=== PATIENT | male | born 1970 | race Caucasian/White ===

== ENCOUNTER 2020-08-31 16:28 | Inpatient (IN) | payer OTHER ==
[~2020-08-31] VITALS: Ht 180.3 cm; Wt 77.2 kg
[~2020-08-31 16:28] MED LIST: ACHD5005 PO; DOCU-143 PO; LEVO125T6 PO; SERT100T PO
[2020-08-31] MEDS ORDERED: fentaNYL INJECTION 100 MCG/2 ML AMP IVP PRN (18:45)
[2020-08-31] MEDS ORDERED: PROMETHAZINE INJ 25 MG/ML (PHENERGAN) AMP IVP PRN (18:45)
--- NOTE | 2020-08-31 18:48 | NUR ---
RADHA ALMARAZ admitted to room 418-1, with an admitting diagnosis of abd pain, on 08/31/20 from [facility] via EMS, accompanied by staff and police cadet to sit with patient (long term inmate) .RADHA ALMARAZ introduced to surroundings, call light, bed controls, phone, TV, temperature control, lights, meal times, smoking policy, visitor policy, side rail policy, bathrooms and showers. Patient Rights given to patient in the handbook. RADHA ALMARAZ verbalizes understanding that [facility] is not responsible for the loss or damage to any personal effects or valuables that are kept in the patients posession during their hospitalization. The following Patient Care Plans and discharge were discussed with the patient . RADHA ALMARAZ verbalizes understanding of Interdisciplinary Patient Education. Patient was informed about the Rapid Response Team and its purpose.
--- NOTE | 2020-08-31 20:03 | HISTORY AND PHYSICAL ---
DATE OF SERVICE: HISTORY OF PRESENT ILLNESS: The patient is a 50-year-old male who was transferred after being evaluated in [facility] in [place], [place]. This individual is incarcerated and states that he developed pain in the epigastric region as well as right upper abdominal quadrant. He also reports a few episodes of nausea and vomiting as well. He does not report any diarrhea nor constipation as well as no red blood per rectum nor any dark tarry stools. He underwent a CT scan, which did show gallbladder wall thickening as well as pericholecystic fluid consistent with an acute cholecystitis. PAST MEDICAL HISTORY: Anxiety, depression, hypothyroid. PAST SURGICAL HISTORY: Excision of abdominal wall lesion, which was benign. ALLERGIES: No known drug allergies. MEDICATIONS: Synthroid daily. SOCIAL HISTORY: Previous smoker; however, quit. Negative alcohol. FAMILY HISTORY: Noncontributory. VITAL SIGNS: Blood pressure 107/60, patient is afebrile. REVIEW OF SYSTEMS: A well-nourished male currently in no acute distress. He is not experiencing any shortness of breath or difficulty breathing. No chest pain, palpitations, diaphoresis. Intermittent episodes of nausea and vomiting. No hematemesis, no coffee-ground emesis, no diarrhea, constipation, no red blood per rectum, no dark tarry stools. No fever, chills, no recent inadvertent weight loss. All other review of systems negative. PHYSICAL EXAMINATION: CHEST: A few expiratory wheezes bilaterally. HEART: Regular, no murmurs. EXTREMITIES: No lower extremity edema, negative Homans sign. HEENT: No scleral icterus. NECK: No cervical lymphadenopathy. ABDOMEN: Soft, slightly distended with pain in the right upper abdominal quadrant and a positive Fabian sign. No hernias palpable. SKIN: Warm, dry. LABORATORY DATA: WBC 7.9, hemoglobin 16.1, hematocrit 46, platelets 176. BUN 29, creatinine 1.55. Total bilirubin 1.7. ASSESSMENT AND PLAN: A 50-year-old male with an acute cholecystitis. We will admit him, start him on IV fluids as well as bowel rest with clear liquid diet. We will continue to follow labs as well as total bilirubin and proceed with broad spectrum IV antibiotics. The natural history of gallbladder disease was also explained to the patient and he is in full understanding of this and would like to proceed with a laparoscopic cholecystectomy, which we will proceed with on this admission once some of the inflammation has subsided. Job ID: [id number] DocumentID: [id number] Dictated Date: 08/31/2020 19:09:31 Chainstitch Elastic Attacher Date: 08/31/2020 20:02:51 Dictated By: MELISSA LUNA MD
[2020-08-31 20:11] VITALS: BP 109/63
[2020-08-31] MEDS ORDERED: PANTOPRAZOLE 40 MG (PROTONIX) VIAL IV ONE (20:15)
[2020-08-31] MEDS: LEVOTHYROXINE 125 MCG (LEVOTHROID) TABLET PO SCH (20:47)
[2020-08-31] MEDS: NS IV 1000 ML 1,000 ML IV SCH (20:48)
[2020-08-31] MEDS ORDERED: PIPERACILLIN/TAZOBACTAM (BULK) 4.5 GM in NS (IVPB) 100 ML IV SCH ×2 (21:00→22:00)
[2020-08-31 22:04] VITALS: BP 106/71
[2020-08-31] MEDS ORDERED: PIPERACILLIN/TAZO 4.5 GM VIAL (ZOSYN) IV ONE (22:29)
[2020-08-31] MEDS ORDERED: NS (IVPB) 100 ML ONE (22:29)
[2020-09-01 00:47] VITALS: BP 97/64
[2020-09-01 04:00] VITALS: BP 97/68
[2020-09-01] MEDS: NS IV 1000 ML 1,000 ML IV SCH ×4 (05:00→21:44)
[2020-09-01] MEDS ORDERED: NS (IVPB) 100 ML ONE (05:03)
[2020-09-01] MEDS ORDERED: PIPERACILLIN/TAZO 4.5 GM VIAL (ZOSYN) IV ONE (05:03)
[2020-09-01] MEDS: PIPERACILLIN/TAZOBACTAM (BULK) 4.5 GM in NS (IVPB) 100 ML IV SCH ×3 (05:22→22:10)
[2020-09-01 06:01] LABS: BASOPHILS % (AUTO) 0 % (0-10); EOSINOPHILS # (AUTO) 0.2 10^3/uL (0.0-0.3); EOSINOPHILS % (AUTO) 3 % (0-10); HEMATOCRIT 38 % (40-54); HEMOGLOBIN 12.5 g/dL (13.3-17.7); LYMPHOCYTES # (AUTO) 0.3 10^3/uL (1.0-4.0); LYMPHOCYTES % (AUTO) 6 % (12-44); MEAN CORPUSCULAR HEMOGLOBIN 28 pg (25-34); MEAN CORPUSCULAR HGB CONC 33 g/dL (32-36); MEAN CORPUSCULAR VOLUME 86 fL (80-99); MONOCYTES # (AUTO) 0.2 10^3/uL (0.0-1.0); MONOCYTES % (AUTO) 3 % (0-12); NEUTROPHILS # (AUTO) 4.8 10^3/uL (1.8-7.8); NEUTROPHILS % (AUTO) 87 % (42-75); PLATELET COUNT 130 10^3/uL (130-400); WHITE BLOOD COUNT 5.5 10^3/uL (4.3-11.0)
[2020-09-01 06:04] LABS: POTASSIUM 3.6 MMOL/L (3.6-5.0)
[2020-09-01 06:05] LABS: CALCIUM 7.6 MG/DL (8.5-10.1)
[2020-09-01 06:07] LABS: TOTAL PROTEIN 5.5 GM/DL (6.4-8.2)
[2020-09-01 06:09] LABS: BILIRUBIN,TOTAL 1.1 MG/DL (0.1-1.0)
[2020-09-01 06:10] LABS: CREATININE SERUM 1.26 MG/DL (0.60-1.30)
[2020-09-01 08:00] VITALS: BP 99/67
[2020-09-01] MEDS: HYDROcodone/APAP 7.5 MG/325 MG (LORTAB, LORCET PLUS) TABLET PO PRN (08:44)
[2020-09-01] MEDS: PANTOPRAZOLE 40 MG (PROTONIX) VIAL IV SCH (08:44)
[2020-09-01] MEDS: ENOXAPARIN 40 MG/0.4 ML (LOVENOX) SYR SC SCH (09:56)
--- NOTE | 2020-09-01 10:02 | Progress Note-Pre Operative ---
Pre-Operative Progress Note H&P Reviewed The H&P was reviewed, patient examined and no changes noted. Date Seen by Provider: Sep 01, 2020 Time Seen by Provider: 10:00 Date H&P Reviewed: Sep 01, 2020 Time H&P Reviewed: 10:00 Pre-Operative Diagnosis: acute cholecystitis MELISSA LUNA MD Sep 01, 2020 10:02
--- NOTE | 2020-09-01 10:26 | Progress Note ---
Subjective Date Seen by a Provider: Sep 01, 2020 Time Seen by a Provider: 09:55 Subjective/Events-last exam Patient seen with Dr. Lugo. Patient reports still having some RUQ and epigastric pain. No fevers or chills. Reports having some clear liquids last night. Denies any fever or chills. Objective Exam Vital Signs Date Time Temp Pulse Resp B/P (MAP) Pulse Ox O2 Delivery O2 Flow Rate FiO2 09/01/20 08:00 37.0 106 18 99/67 (78) 93 Room Air 09/01/20 04:00 36.2 94 20 97/68 (78) 94 Room Air 09/01/20 00:47 36.8 100 20 97/64 (75) 94 Room Air 08/31/20 22:04 36.5 109 18 106/71 95 Room Air 08/31/20 20:30 94 Room Air 08/31/20 20:11 36.7 112 20 109/63 (78) 92 Room Air 08/31/20 19:06 Room Air I & O 09/01/20 07:00 Intake Total 1470 ml Output Total 475 ml Balance 995 ml Capillary Refill : Less Than 3 Seconds General Appearance: No Apparent Distress, WD/WN Neck: Full Range of Motion, Supple Respiratory: Normal Breath Sounds, No Accessory Muscle Use, No Respiratory Distress Cardiovascular: Regular Rate, Rhythm, No Edema Gastrointestinal: normal bowel sounds, soft, distended, tenderness (RUQ and Epigastric region) Extremity: Normal Inspection, Normal Range of Motion Neurologic/Psychiatric: Alert, Oriented x3 Skin: Normal Color, Warm/Dry Results Lab Laboratory Tests 09/01/20 05:28: White Blood Count 5.5, Red Blood Count 4.40, Hemoglobin 12.5L, Hematocrit 38L, Mean Corpuscular Volume 86, Mean Corpuscular Hemoglobin 28, Mean Corpuscular Hem oglobin Concent 33, Red Cell Distribution Width 13.2, Platelet Count 130, Mean Platelet Volume 11.0, Immature Granulocyte % (Auto) 1, Neutrophils (%) (Auto) 87H, Lymphocytes (%) (Auto) 6L, Monocytes (%) (Auto) 3, Eosinophils (%) (Auto) 3, Basophils (%) (Auto) 0, Neutrophils # (Auto) 4.8, Lymphocytes # (Auto) 0.3L, Monocytes # (Auto) 0.2, Eosinophils # (Auto) 0.2, Basophils # (Auto) 0.0, Immature Granulocyte # (Auto) 0.0, Sodium Level 138, Potassium Level 3.6, Chloride Level 105, Carbon Dioxide Level 23, Anion Gap 10, Blood Urea Nitrogen 26H, Creatinine 1.26, Estimat Glomerular Filtration Rate 60, BUN/Creatinine Ratio 21, Glucose Level 84, Calcium Level 7.6L, Corrected Calcium 8.4L, Total Bilirubin 1.1H, Aspartate Amino Transf (AST/SGOT) 41H, Alanine Aminotransferase (ALT/SGPT) 19, Alkaline Phosphatase 31L, Total Protein 5.5L, Albumin 3.0L Assessment/Plan Assessment/Plan Assess & Plan/Chief Complaint A 50 year old male with acute cholecystitis VSS WBC 5.5 Total bilirubin 1.1 - will monitor Continue with IV abx, pain, and nausea medications Clear liquid diet, NPO after midnight Labs in AM Will schedule for a laparoscopic cholecystectomy tomorrow (09/02/2020) Clinical Quality Measures DVT/VTE Risk/Contraindication: Risk Factor Score Per Nursin RFS Level Per Nursing on Admit: 2=Moderate SOL JEAN-BAPTISTE MOTOR VEHICLE ASSEMBLER Sep 01, 2020 10:26
[2020-09-01 12:00] VITALS: BP 105/71
[2020-09-01] MEDS: ONDANSETRON 4 MG/2 ML (SDV) Z0FRAN IVP PRN ×2 (13:33→17:41)
--- NOTE | 2020-09-01 13:33 | NUR ---
ZOFRAN GIVEN FOR N/V AT THIS TIME. WILL CONTINUE TO MONITOR.
--- NOTE | 2020-09-01 15:27 | Consultation - Hospitalist ---
HPI History of Present Illness: HPI/Chief Complaint Jaylen Barrera is a 50 year old male who presented with abdominal pain. He is incarcerated and a group home staff member at his bedside. He was transferred from [facility] in [place]. He reports having abdominal pain, mainly in his right upper quadrant. He reports having nausea and vomiting prior to arrival. He is nauseous at this time. He tried to eat some chicken broth. He denies diarrhea. He does not know if he's had a fever, but says he has been sweaty. He denies shortness of breath and cough. He has a history of hypothyroidism and takes a supplement. He says he was started on Zyprexa recently. Source: patient Exam Limitations: no limitations Date Seen 09/01/20 Attending Physician Oscar Lugo MD [facility] Referring Physician Date of Admission Aug 31, 2020 at 18:15 Home Medications & Allergies Home Medications Reviewed patient Home Medication Reconciliation performed by pharmacy medication reconciliations vehicle operator technician and/or nursing. Patients Allergies have been reviewed. Allergies Allergies Coded Allergies No Known Drug Allergies (Ngtlueihis05/28/15) Past Wqardvg-Scxbnm-Magcba Hx Past Med/Social Hx: Reviewed Nursing Past Med/Soc Hx Patient Social History Alcohol Use: Denies Use Recreational Drug Use: No Physical Abuse Screen: No Sexual Abuse: No Recent Foreign Travel: No Contact w/other who traveled: No Recent Infectious Disease Expo: No Immunizations Up To Date Date of Influenza Vaccine: Sep 16, 2015 Past Medical History Sexually Transmitted Disease: No HIV/AIDS: No Loss of Vision: Bilateral Hearing Impairment: Denies Psychosocial: Anxiety, Bipolar Adverse Reaction to Blood Taylor: No Family History Diabetes mellitus Thyroid disease Visual disorder Review of Systems Constitutional: diaphoresis EENTM: no symptoms reported Respiratory: no symptoms reported Cardiovascular: no symptoms reported Gastrointestinal: abdominal pain, nausea, vomiting Genitourinary: no symptoms reported Musculoskeletal: no symptoms reported Skin: no symptoms reported Psychiatric/Neurological: No Symptoms Reported Physical Exam Physical Exam Vital Signs Vital Signs - First Documented 08/31/20 08/31/20 19:06 20:11 Temp 36.7 Pulse 112 Resp 20 B/P (MAP) 109/63 (78) Pulse Ox 92 O2 Delivery Room Air Capillary Refill : Less Than 3 Seconds Height, Weight, BMI Height: 5'11.00" Weight: 183lbs. oz. 83.746566nk; 23.74 BMI Method: General Appearance: WD/WN, Mild Distress (uncomfortable) HEENT: PERRL/EOMI, Pharynx Normal Neck: Normal Inspection, Supple Respiratory: Lungs Clear, Normal Breath Sounds, No Respiratory Distress Cardiovascular: Regular Rate, Rhythm, No Edema, No Murmur Gastrointestinal: Normal Bowel Sounds, Soft; No Distended, No Guarding; Tenderness Extremity: Normal Inspection, Non Tender, No Pedal Edema Neurologic/Psychiatric: Alert, Oriented x3, No Motor/Sensory Deficits, Normal Mood/Affect Skin: Normal Color, Warm/Dry Results Results/Procedures Labs Laboratory Tests 09/01/20 05:28 Patient resulted labs reviewed. Assessment/Plan Assessment and Plan Assess & Plan/Chief Complaint Acute cholecystitis Surgery primary CT Abdomen reportedly showed acute cholecysitis Planning for cholecystectomy tomorrow Pain regimen Antiemetics Incentive spirometry Clears, NPO at midnight Hypothyroidism Continue thyroid replacement DVT Prophylaxis: held for surgery, resume when able per surgery Thank you for the consult. Please contact the hospitalist service with any questions or concerns. Diagnosis/Problems Diagnosis/Problems (1) Acute cholecystitis Status: Acute Clinical Quality Measures DVT/VTE Risk/Contraindication: Risk Factor Score Per Nursin RFS Level Per Nursing on Admit: 2=Moderate JUDY FONTENOT MD Sep 01, 2020 15:27
[2020-09-01 16:00] VITALS: BP 150/76
[2020-09-01 19:57] VITALS: BP 107/67
[2020-09-01] MEDS: LEVOTHYROXINE 125 MCG (LEVOTHROID) TABLET PO SCH (20:12)
[2020-09-01] MEDS: polyethylene glycoL POWDER 17 GM (MIRALAX) PACK PO SCH (20:12)
[2020-09-02] VITALS (14 sets, daily range): BP systolic 99–128; BP diastolic 63–93
[2020-09-02] MEDS ORDERED: RT-ALBUTEROL SULF 2.5 MG/3 ML PRE-MIX VIAL INH PRN (00:30)
[2020-09-02] MEDS: PIPERACILLIN/TAZOBACTAM (BULK) 4.5 GM in NS (IVPB) 100 ML IV SCH ×3 (06:04→22:44)
[2020-09-02] MEDS: LEVOTHYROXINE 125 MCG (LEVOTHROID) TABLET PO SCH ×2 (06:04→20:43)
[2020-09-02 06:34] LABS: BASOPHILS % (AUTO) 0 % (0-10); EOSINOPHILS # (AUTO) 0.1 10^3/uL (0.0-0.3); EOSINOPHILS % (AUTO) 3 % (0-10); HEMATOCRIT 35 % (40-54); HEMOGLOBIN 11.7 g/dL (13.3-17.7); LYMPHOCYTES # (AUTO) 0.4 10^3/uL (1.0-4.0); LYMPHOCYTES % (AUTO) 8 % (12-44); MEAN CORPUSCULAR HEMOGLOBIN 29 pg (25-34); MEAN CORPUSCULAR HGB CONC 34 g/dL (32-36); MEAN CORPUSCULAR VOLUME 85 fL (80-99); MONOCYTES # (AUTO) 0.3 10^3/uL (0.0-1.0); MONOCYTES % (AUTO) 6 % (0-12); NEUTROPHILS # (AUTO) 3.9 10^3/uL (1.8-7.8); NEUTROPHILS % (AUTO) 82 % (42-75); PLATELET COUNT 158 10^3/uL (130-400); WHITE BLOOD COUNT 4.7 10^3/uL (4.3-11.0)
[2020-09-02 06:52] LABS: ALBUMIN 2.8 GM/DL (3.2-4.5); CHLORIDE 107 MMOL/L (98-107); POTASSIUM 3.3 MMOL/L (3.6-5.0); SODIUM 138 MMOL/L (135-145)
[2020-09-02 06:53] LABS: CALCIUM 7.6 MG/DL (8.5-10.1)
[2020-09-02 06:55] LABS: GLUCOSE 91 MG/DL (70-105); TOTAL PROTEIN 5.4 GM/DL (6.4-8.2)
[2020-09-02 06:56] LABS: BILIRUBIN,TOTAL 0.5 MG/DL (0.1-1.0); CARBON DIOXIDE 22 MMOL/L (21-32)
[2020-09-02 06:58] LABS: ALKALINE PHOSPHATASE 30 U/L (40-136); CREATININE SERUM 1.08 MG/DL (0.60-1.30); GFR ESTIMATED > 60
[2020-09-02 06:59] LABS: BUN/CREATININE RATIO 23
[2020-09-02 07:01] LABS: ALANINE AMINOTRANSFERASE 15 U/L (0-55)
[2020-09-02] MEDS: NS IV 1000 ML 1,000 ML IV SCH ×2 (07:03→20:44)
[2020-09-02] MEDS: ENOXAPARIN 40 MG/0.4 ML (LOVENOX) SYR SC SCH (07:37)
[2020-09-02] MEDS: polyethylene glycoL POWDER 17 GM (MIRALAX) PACK PO SCH ×2 (07:37→21:00)
[2020-09-02] MEDS: PANTOPRAZOLE 40 MG (PROTONIX) VIAL IV SCH (07:53)
[2020-09-02] MEDS ORDERED: proPOfol 200 MG/20 ML (DIPRIVAN) VIAL IV ONE ×2 (10:59→16:11)
[2020-09-02] MEDS ORDERED: LIDOCAINE PF 2% 5 ML (XYLOCAINE) VIAL ONE (10:59)
[2020-09-02] MEDS ORDERED: SEVOFLURANE (ULTANE) 15 ML INHAL SOLN ONE ×4 (10:59→16:17)
[2020-09-02] MEDS ORDERED: ROCURONIUM 10 MG/ML 5 ML SYRINGE IV ONE (10:59)
[2020-09-02] MEDS ORDERED: MIDAZOLAM 2 MG/2 ML (VERSED) VIAL ONE (11:00)
[2020-09-02] MEDS ORDERED: fentaNYL INJECTION 100 MCG/2 ML AMP ONE (11:00)
[2020-09-02] MEDS ORDERED: ONDANSETRON 4 MG/2 ML (SDV) Z0FRAN ONE (11:02)
[2020-09-02] MEDS ORDERED: BUP/EPI 0.25% 1:200,000 (MARCAINE) 30 ML VIAL ONE (12:16)
[2020-09-02] MEDS ORDERED: HYDR-3817 PO (14:29)
--- NOTE | 2020-09-02 14:29 | Discharge Inst-Surgical ---
D/C Lap Instructions-JEREMY New, Converted, or Re-Newed RX: RX on Chart Follow Up Appt in 2 weeks Activity as tolerated No driving for 24 hours No driving while on pain medications Incentive Spirometry use every 2 hours while awake Regular Diet Symptoms to Report: Fever over 101 degree F, Nausea/Vomiting Infection Signs and Symptoms to report: Increased redness, Foul odor of wound, Increased drainage Bathing instructions: May shower Operative Area Clean/Dry; Keep incision clean/dry If any problems/questions: Contact your physician or go to Emergency Room MELISSA LUNA MD Sep 02, 2020 14:29
--- NOTE | 2020-09-02 14:30 | NUR ---
Patient taken to OR for procedure at this time.
[2020-09-02] MEDS ORDERED: SUCCINYLCHOLINE INJ 100 MG/5 ML SYR/VIAL ONE (14:44)
[2020-09-02] MEDS: RT-ALBUTEROL SULF 2.5 MG/3 ML PRE-MIX VIAL INH SCH ×2 (14:49→22:57)
[2020-09-02] MEDS: LACTATED RINGERS 1,000 ML IV SCH ×2 (14:50→15:15)
[2020-09-02] MEDS ORDERED: RT-ALBUTEROL SULF 2.5 MG/3 ML PRE-MIX VIAL INH ONE ×2 (15:00→17:15)
[2020-09-02] MEDS ORDERED: ceFAZolin INJECTION 2,000 MG ONE (15:04)
[2020-09-02] MEDS ORDERED: 0.9% SODIUM CHLORIDE PF INJ 20 ML VIAL ONE ×2 (15:05)
[2020-09-02] MEDS ORDERED: HYDROmorphone 2 MG/ML VIAL (DILAUDID) ONE ×2 (15:23→15:45)
[2020-09-02] MEDS ORDERED: morphine INJ 10 MG/ML 1ML (SYR OR VIAL) ONE (15:23)
[2020-09-02] MEDS ORDERED: MEPERIDINE (DEMEROL) INJ 100 MG/ML ONE (15:23)
[2020-09-02] MEDS ORDERED: NEOSTIGMINE 3 MG/3 ML VIAL ONE (16:18)
[2020-09-02] MEDS ORDERED: GLYCOPYRROLATE 0.2 MG/ML (ROBINUL) 2 ML VIAL ONE (16:18)
[2020-09-02] MEDS ORDERED: NALOXONE 0.4 MG/ML 1 ML (NARCAN) VIAL ONE (16:50)
[2020-09-02] MEDS ORDERED: morphine INJ 10 MG/ML 1ML (SYR OR VIAL) IVP ONE (17:15)
[2020-09-02] MEDS ORDERED: MEPERIDINE (DEMEROL) INJ 50 MG/ML IVP ONE (17:15)
[2020-09-02] MEDS ORDERED: PROMETHAZINE INJ 25 MG/ML (PHENERGAN) AMP IVP ONE (17:15)
[2020-09-02] MEDS ORDERED: ONDANSETRON 4 MG/2 ML (SDV) Z0FRAN IVP PRN (17:15)
[2020-09-03] MEDS: HYDROcodone/APAP 7.5 MG/325 MG (LORTAB, LORCET PLUS) TABLET PO PRN ×2 (00:21→15:49)
[2020-09-03] MEDS: NS IV 1000 ML 1,000 ML IV SCH ×4 (00:29→20:00)
[2020-09-03 00:42] VITALS: BP 103/68
--- NOTE | 2020-09-03 02:53 | OPERATIVE REPORT ---
DATE OF SERVICE: 09/02/2020 PREOPERATIVE DIAGNOSIS: Acute cholecystitis. POSTOPERATIVE DIAGNOSIS: Necrotic acalculous cholecystitis. PROCEDURE: Laparoscopic cholecystectomy. SURGEON: Oscar Lugo MD CODING AND REIMBURSEMENT SPECIALIST: Colten Larkin APRN ANESTHESIA: General endotracheal. ESTIMATED BLOOD LOSS: Minimal. FINDINGS: Necrotic and emphysematous gallbladder with purulence within the gallbladder, no stones identified. DISPOSITION: The patient tolerated the procedure well. INDICATIONS: The patient is a 50-year-old male who was transferred after being evaluated at [facility] in [place], [place]. This individual was incarcerated and states that he developed pain in the epigastric as well as right upper abdominal quadrant. This was also associated with nausea and vomiting. He did not report any change in bowel habits; however, states that his last bowel movement was several days ago. A CT scan at [facility] did show gallbladder wall thickening as well as pericholecystic fluid consistent with acute cholecystitis. The patient was admitted and started on broad spectrum IV antibiotics as well as bowel rest. DESCRIPTION OF PROCEDURE: The patient was brought to the operating room, laid supine on the table. After adequate IV pain and sedative medications and general endotracheal intubation, the abdomen was prepped and draped in standard surgical fashion. A 0.5% Marcaine with epinephrine was used to anesthetize overlying skin in the left upper abdominal quadrant and a transverse skin incision made using 15 blade. An 0 silk suture was applied to the medial aspect of the incision for retraction and a Veress needle inserted with a low opening pressure of 0 mmHg and the abdomen was then insufflated to 15 mmHg pressure. The Veress needle removed and a 5 mm XL trocar placed followed by a 5 mm 45-degree angle laparoscope visualizing the peritoneal cavity. A 4-quadrant abdominal exploration was performed. There was a distended inflamed gallbladder with omental and peritoneal adhesions with fibrinopurulent exudative material surrounding this region. There was also necrotic patches throughout the gallbladder consistent with a necrotic gallbladder. Under direct visualization, we then proceeded to place a supraumbilical 10 mm port after the skin and peritoneal lining were anesthetized using 0.5% Marcaine with epinephrine and a transverse skin incision made using 15 blade. In a similar manner, a right upper abdominal quadrant 5 mm port was placed. The gallbladder was then decompressed with an aspiration needle and tubing. The fundus of the gallbladder was then retracted anteriorly and superiorly and the patient was placed in reverse Trendelenburg position as well as plane right side up, left side down. The fundus of the gallbladder was then retracted anteriorly and superiorly. The omental adhesions towards the gallbladder were then taken out using blunt dissection using a hook instrument. The hepatoduodenal ligament was then opened and dissected in a similar fashion. The entire critical view of safety was identified including the cystic duct and artery as the only two structures going into the gallbladder as well as the cystic plate behind the proximal gallbladder. A timeout was then taken and the cystic duct and artery were then clipped proximally, distally and cut with EndoShears. The gallbladder was dissected off the liver bed using electrocautery on the hook instrument with visualization of good hemostasis as well as no leaking ducts of Luschka. The gallbladder was removed through the 10 mm port site using an EndoCatch bag. A 19-Guamanian Neno-Schreiber drain was then placed underneath the right subhepatic space and brought out the right upper abdominal quadrant 5 mm port site and sutured to the skin using 3-0 nylon interrupted sutures. The fascia to the 10 mm port site was then closed using a running 0 Prolene suture. The abdomen was desufflated and the remaining ports removed. All skin incisions were closed using 4-0 Monocryl running subcuticular sutures. Wounds were then cleaned and covered with Dermabond. The patient tolerated the procedure well. We will send him back to the general surgical floor and continue with at least 24 hours of IV broad spectrum antibiotic with Zosyn. We will also start him on clear liquid diet and advance as tolerated. Job ID: [id number] DocumentID: [id number] Dictated Date: 09/02/2020 16:40:00 Education Professor Date: 09/03/2020 02:52:43 Dictated By: MD JIGNA RODRIGUEZ
[2020-09-03 04:20] VITALS: BP 107/73
[2020-09-03] MEDS: PIPERACILLIN/TAZOBACTAM (BULK) 4.5 GM in NS (IVPB) 100 ML IV SCH ×3 (05:27→22:13)
[2020-09-03] MEDS: LEVOTHYROXINE 125 MCG (LEVOTHROID) TABLET PO SCH ×2 (06:40→21:14)
[2020-09-03] MEDS: RT-ALBUTEROL SULF 2.5 MG/3 ML PRE-MIX VIAL INH SCH ×2 (06:51→23:19)
[2020-09-03 07:40] VITALS: BP 118/75
--- NOTE | 2020-09-03 08:08 | Anesthesia-General Post-Op ---
General Patient Condition Mental Status/LOC: Same as Preop Cardiovascular: Satisfactory Nausea/Vomiting: Absent Respiratory: Satisfactory Pain: Controlled Complications: Absent Post Op Complications Complications None Follow Up Care/Instructions Patient Instructions None needed. Anesthesia/Patient Condition Patient Condition Patient is doing well, no complaints, stable vital signs, no apparent adverse anesthesia problems. No complications reported per nursing. CONSUELO MALAGON CRNA Sep 03, 2020 08:08
[2020-09-03] MEDS: PANTOPRAZOLE 40 MG (PROTONIX) VIAL IV SCH (09:08)
[2020-09-03] MEDS: polyethylene glycoL POWDER 17 GM (MIRALAX) PACK PO SCH ×4 (09:10→21:15)
[2020-09-03] MEDS: ENOXAPARIN 40 MG/0.4 ML (LOVENOX) SYR SC SCH (09:10)
[2020-09-03] MEDS: ONDANSETRON 4 MG/2 ML (SDV) Z0FRAN IVP PRN (12:17)
--- NOTE | 2020-09-03 12:20 | NUR ---
Patient complaint of nausea/vomiting at this time. stated " I stated to eat my banana and felt like my stomach was too full and threw it up". Zofran given at this time and patient requested Miralax at this time since he refused this AM. patient changed to clear liquid diet for lunch
--- NOTE | 2020-09-03 13:57 | Progress Note ---
Subjective Date Seen by a Provider: Sep 03, 2020 Time Seen by a Provider: 13:30 Subjective/Events-last exam has developed nausea and vomiting. likely ileus from infected gallbladder. no fever/chills. pain controlled. Objective Exam Vital Signs Date Time Temp Pulse Resp B/P (MAP) Pulse Ox O2 Delivery O2 Flow Rate FiO2 09/03/20 08:00 Nasal Cannula 09/03/20 07:40 37.0 78 20 118/75 (89) 94 Room Air 09/03/20 06:53 90 Room Air 09/03/20 04:20 36.8 96 20 107/73 (84) 94 Room Air 09/03/20 00:42 37.6 96 20 103/68 (80) 95 Nasal Cannula 3.00 09/02/20 22:59 99 Nasal Cannula 2.00 09/02/20 20:30 95 Nasal Cannula 3.00 09/02/20 19:16 36.6 96 18 111/74 (86) 94 Nasal Cannula 3.00 09/02/20 18:02 36.7 95 18 102/76 (85) 97 Nasal Cannula 4.00 09/02/20 18:00 Nasal Cannula 4 09/02/20 18:00 37.3 16 128/68 (88) 96 Nasal Cannula 4 09/02/20 17:50 Nasal Cannula 4 09/02/20 17:50 16 128/68 (88) 96 Nasal Cannula 4 09/02/20 17:40 14 106/81 (89) 95 OxyMask 5 09/02/20 17:35 OxyMask 5 09/02/20 17:30 14 122/93 (103) 92 OxyMask 5 09/02/20 17:20 12 110/85 (93) 95 OxyMask 6 09/02/20 17:20 OxyMask 6 09/02/20 17:10 12 127/72 (90) 95 OxyMask 10 09/02/20 17:05 36.4 12 102/63 (76) 96 OxyMask 10 09/02/20 17:05 OxyMask 10 I & O 09/03/20 07:00 Intake Total 2410 ml Output Total 1015 ml Balance 1395 ml Capillary Refill : Less Than 3 SecondsLess Than 3 Seconds General Appearance: No Apparent Distress HEENT: PERRL/EOMI Neck: Full Range of Motion Respiratory: Chest Non Tender, Decreased Breath Sounds Cardiovascular: Regular Rate, Rhythm Gastrointestinal: soft, tenderness Extremity: Normal Capillary Refill Neurologic/Psychiatric: Alert, Oriented x3 Skin: Normal Color Lymphatic: No Adenopathy Results Lab Microbiology 09/02/20 MRSA Screen - Final, Complete MRSA not isolated Assessment/Plan Assessment/Plan Assess & Plan/Chief Complaint necrotic acalculous cholecystitis s/p lap cholecystectomy. cont IV fluids and abx. ambulate. await bowel fxn. Clinical Quality Measures DVT/VTE Risk/Contraindication: Risk Factor Score Per Nursin RFS Level Per Nursing on Admit: 2=Moderate MELISSA LUNA MD Sep 03, 2020 13:57
[2020-09-03 14:29] VITALS: BP 136/78
[2020-09-03 15:57] VITALS: BP 111/71
[2020-09-03] MEDS: METOCLOPRAMIDE INJ 10 MG/2 ML (REGLAN) IVP SCH (18:41)
[2020-09-03 20:11] VITALS: BP 115/73
[2020-09-04] MEDS: METOCLOPRAMIDE INJ 10 MG/2 ML (REGLAN) IVP SCH ×4 (00:16→17:33)
[2020-09-04 00:58] VITALS: BP 107/63
[2020-09-04] MEDS: NS IV 1000 ML 1,000 ML IV SCH ×4 (02:22→22:45)
[2020-09-04 04:49] VITALS: BP 110/71
[2020-09-04] MEDS: PIPERACILLIN/TAZOBACTAM (BULK) 4.5 GM in NS (IVPB) 100 ML IV SCH ×3 (05:55→20:51)
[2020-09-04] MEDS: RT-ALBUTEROL SULF 2.5 MG/3 ML PRE-MIX VIAL INH SCH ×2 (07:15→20:34)
[2020-09-04 07:35] VITALS: BP 115/76
[2020-09-04] MEDS: PANTOPRAZOLE 40 MG (PROTONIX) VIAL IV SCH (08:13)
[2020-09-04] MEDS: ENOXAPARIN 40 MG/0.4 ML (LOVENOX) SYR SC SCH (08:13)
[2020-09-04] MEDS: polyethylene glycoL POWDER 17 GM (MIRALAX) PACK PO SCH ×2 (08:13→20:43)
[2020-09-04 11:15] VITALS: BP 110/70
--- NOTE | 2020-09-04 12:52 | Progress Note ---
Subjective Date Seen by a Provider: Sep 04, 2020 Time Seen by a Provider: 12:30 Subjective/Events-last exam doing slightly better. able to tolerate some liquids. pain controlled. no fever/chills. minimal SS drain output. Objective Exam Vital Signs Date Time Temp Pulse Resp B/P (MAP) Pulse Ox O2 Delivery O2 Flow Rate FiO2 09/04/20 11:15 37.0 82 18 110/70 (83) 94 Nasal Cannula 2.00 09/04/20 08:00 Room Air 09/04/20 07:35 37.4 78 18 115/76 (89) 96 Nasal Cannula 2.00 09/04/20 07:17 91 Nasal Cannula 2.00 09/04/20 04:49 37.1 75 20 110/71 (84) 97 Nasal Cannula 2.00 09/04/20 00:58 37.0 76 16 107/63 (78) 96 Nasal Cannula 2.00 09/03/20 23:18 90 Room Air 09/03/20 20:11 37.2 82 16 115/73 (87) 92 Room Air 09/03/20 20:00 Room Air 09/03/20 15:57 37.4 80 20 111/71 (84) 93 Room Air 09/03/20 14:29 37.2 78 14 136/78 (97) 90 I & O 09/04/20 07:00 Intake Total 1117 ml Output Total 70 ml Balance 1047 ml Capillary Refill : Less Than 3 SecondsLess Than 3 Seconds General Appearance: No Apparent Distress HEENT: PERRL/EOMI Neck: Full Range of Motion Respiratory: Chest Non Tender, Lungs Clear, Decreased Breath Sounds Cardiovascular: Regular Rate, Rhythm Gastrointestinal: normal bowel sounds, soft, tenderness Extremity: Normal Capillary Refill Neurologic/Psychiatric: Alert, Oriented x3 Skin: Normal Color Lymphatic: No Adenopathy Results Lab Microbiology 09/02/20 MRSA Screen - Final, Complete MRSA not isolated Assessment/Plan Assessment/Plan Assess & Plan/Chief Complaint necrotic acalculous cholecystitis s/p lap cholecystectomy. cont IV fluids and abx. ambulate. await more bowel fxn then advance diet. one more day IV abx and likely d/c back to [facility] in am. remove drain before d/c. Clinical Quality Measures DVT/VTE Risk/Contraindication: Risk Factor Score Per Nursin RFS Level Per Nursing on Admit: 2=Moderate KIDO,TAKAAKI MD Sep 04, 2020 12:52
[2020-09-04] MEDS ORDERED: AMOX-358 PO (12:53)
--- NOTE | 2020-09-04 14:04 | NUR ---
RD ASSESSMENT PMHx: hypothyroidism PT INTERACTION: Pt was awake and pleasant during nutrition assessment. Pt states current appetite as "I feel hungry." Note pt currently on Clear Liquid diet, and note avg PO intake 35% x2d, per chart review. Pt states following a regular diet, and has some issues with chewing/swallowing food. Pt states some recent issues with nausea, vomiting, and diarrhea. Note recent episode of emesis on 09/02, per chart review. Note last BM was 09/02, and pt currently on bowel regimen of miralax BID, per chart review. Pt states no recent wt changes. Note unable to determine recent wt hx, per chart review. ABNORMAL NUTRITION-RELATED LAB VALUES LOW: K 3.3; Ca 7.6; alkphos 30; Pro 5.4; alb 2.8 HIGH: Est. kcal needs: 1925 kcal | 20 kcal/kg Est. Pro needs: 93 g Pro | 1.2 g Pro/kg PES STATEMENT: Inadequate oral intake (NI-2.1) related to loss of appetite | nausea | vomiting | diarrhea as evidenced by pt interview | avg PO intake 35% x2d INTERVENTION: Continue with current diet order of Clear Liquid diet. Would recommend diet advancement as medically able and as tolerated. Pt may benefit from nutrition supplementation if PO intake remains low. Will continue to follow and reassess as pt needs, intake, and status change. Ayaz Benites, MS RD LD
[2020-09-04 16:00] VITALS: BP 114/70
[2020-09-04 20:00] VITALS: BP 122/80
[2020-09-04] MEDS: LEVOTHYROXINE 125 MCG (LEVOTHROID) TABLET PO SCH (20:42)
[2020-09-04] MEDS: HYDROcodone/APAP 7.5 MG/325 MG (LORTAB, LORCET PLUS) TABLET PO PRN (23:43)
[2020-09-05] VITALS: BP 106/68
[2020-09-05] MEDS: METOCLOPRAMIDE INJ 10 MG/2 ML (REGLAN) IVP SCH ×3 (00:19→10:39)
[2020-09-05] MEDS: NS IV 1000 ML 1,000 ML IV SCH (02:21)
[2020-09-05 04:00] VITALS: BP 111/72
[2020-09-05] MEDS: PIPERACILLIN/TAZOBACTAM (BULK) 4.5 GM in NS (IVPB) 100 ML IV SCH (05:37)
[2020-09-05 08:00] VITALS: BP 115/74
[2020-09-05] MEDS: PANTOPRAZOLE 40 MG (PROTONIX) VIAL IV SCH (08:18)
[2020-09-05] MEDS: polyethylene glycoL POWDER 17 GM (MIRALAX) PACK PO SCH (08:19)
[2020-09-05] MEDS: ENOXAPARIN 40 MG/0.4 ML (LOVENOX) SYR SC SCH (08:19)
[2020-09-05] MEDS: HYDROcodone/APAP 7.5 MG/325 MG (LORTAB, LORCET PLUS) TABLET PO PRN (08:20)
[2020-09-05] MEDS: RT-ALBUTEROL SULF 2.5 MG/3 ML PRE-MIX VIAL INH SCH (08:31)
--- NOTE | 2020-09-05 10:45 | NUR ---
RUTH ANN DRAIN DC, ZORAIDA WELL, 5ML DRAINAGE IN RUTH ANN DRAIN, NO REDNESS AT SITE, IV SITE WITHOUT REDNESS OR SWELLING, IV DC, DENIES PAIN AT THIE TIME, LAST BM TODAY, VOIDING WITHOUT DIFFICULTY, SECURITY SITE SUPERVISOR AT BEDSIDE.
[2020-09-05 11:11] VITALS: BP 115/74
--- NOTE | 2020-09-05 11:17 | NUR ---
DISMISSED PER W/C ACCOMPANIED BY STAFF AND CONSTRUCTION AREA MANAGER, DISCHARGE INSTRUCTIONS GIVEN, VERBALIZED UNDERSTANDING, PRESCRIPTION GIVEN TO PATIENT, SECURITY WITH PATIENT
== END 2020-09-05 11:20 | DRG 419 ==
LOC: 4TH 18:15 → OBSVTOIN 18:15
PROVIDERS: ADMIT Surgery; ATTEND Surgery
PROC: 0FT44ZZ Resection of Gallbladder, Percutaneous Endoscopic Approach (ICD-10-PCS; principal; 2020-09-02 14:58)
DX: K81.0 Acute cholecystitis (principal); F41.9 Anxiety disorder, unspecified; E03.9 Hypothyroidism, unspecified; F32.9 Major depressive disorder, single episode, unspecified
CPT/HCPCS: 36415; 80053; 85025; 87081; 94640; 94760